=== PATIENT | female | born 1960 | race African-American/Black ===

== ENCOUNTER 2017-10-02 11:43 | Emergency (ER) | payer OTHER ==
[~2017-10-02] VITALS: Ht 167.6 cm; Wt 113.9 kg
[2017-10-02 12:21] LABS: HEMATOCRIT 40.4 % (36.0-46.0); MCH 29.4 PG (29.0-34.0); MCHC 32.2 G/DL (30.0-36.0); MCV 91.4 FL (83-99); MEAN PLAT.VOLUME 10.1 uM^3 (9.5-12.4); PLATELET COUNT 316 K/uL (156-360); RBC DIS.WIDTH-CV 12.2 % (11.8-14.6); RED BLOOD COUNT 4.42 M/uL (3.80-5.20)
[2017-10-02 12:30] LABS: CHLORIDE 103 mEq/L (99-109); POTASSIUM 3.8 mEq/L (3.7-5.4); SODIUM 140 mEq/L (136-147)
[2017-10-02 12:32] LABS: GLUCOSE 130 mg/dL (70-99)
[2017-10-02 12:33] LABS: ANION GAP 11 MEQ/L (2-14)
[2017-10-02 12:34] LABS: TOTAL BILIRUBIN 0.4 mg/dL (0.0-1.0)
[2017-10-02 12:35] LABS: ALKALINE PHOSPHATASE 97 IU/L (3-129)
[2017-10-02 12:37] LABS: UREA NITROGEN (BUN) 18 mg/dL (9-23)
[2017-10-02 12:38] LABS: GFR ESTIMATE (CALCULATED) > 59 mL/min/
[2017-10-02 12:45] LABS: QUANTITATIVE HCG < 4.0 MIU/ML
[2017-10-02 15:25] LABS: ADD MIUA? YES; BILIRUBIN NEGATIVE; BLOOD NEGATIVE; COLOR YELLOW ((YELLOW)); GLUCOSE (STRIP) NEGATIVE; KETONES 5; LEUKOCYTES NEGATIVE; NITRITE NEGATIVE; PROTEIN (STRIP) 30; UROBILINOGEN 0.2 MG/DL (0.2-1.0)
[2017-10-02 15:29] LABS: BACTERIA NONE SEEN /HPF; EPITHELIAL CELLS RARE /HPF; HYALINE CASTS 0-5 /LPF; MUCUS 2+ /LPF; RED BLOOD CELLS 0-5 /HPF (0-5); UCUL ADDED? NO; WHITE BLOOD CELLS 0-5 /HPF (0-5)
[2017-10-02] MEDS ORDERED: ZOFRAN ODT4 MG PO (15:55)
[2017-10-02] MEDS ORDERED: BENTYL10 MG PO (15:55)
[2017-10-02 16:02] VITALS: BP 131/73
== END 2017-10-02 16:06 | disposition home or self-care (01) ==
LOC: EME 11:43
DX: R11.2 Nausea with vomiting, unspecified (principal); R19.7 Diarrhea, unspecified; K62.5 Hemorrhage of anus and rectum; I10 Essential (primary) hypertension; G89.29 Other chronic pain; Z96.643 Presence of artificial hip joint, bilateral
CPT/HCPCS: 80053; 81003; 84702; 85027; 99281; 99285